=== PATIENT | male | born 1970 | race Caucasian/White ===

== ENCOUNTER → 2016-05-04 | Day surgery (SDC) | payer MEDICARE, SELFPAY ==
[~2016-05-04] MED LIST: IBUPROFEN800 MG PO; PERCOCET 7.5-31 EACH PO; VITAMIN B-121000 MC1 PO; VOLTAREN **OUT75 MG PO; XARELTO10 MG PO
[2016-05-04 11:39] LABS: HCT 42.6 % (42.0-52.0); HGB 15.1 g/dl (13.2-18.0); MCH 34.6 pg (25.0-31.0); MCHC 35.4 g/dL (32.0-36.0); MCV 97.5 fL (78.0-100.0); MPV 10.5 fL (6.0-9.5); RBC 4.37 M/uL (4.70-6.00); RDW 14.8 % (11.5-14.0); WBC 8.2 K/uL (4.0-10.5)
== END | disposition home or self-care (01) ==
LOC: FAS 10:56
PROVIDERS: Legal Medicine
DX: G56.01 Carpal tunnel syndrome, right upper limb (principal); K21.9 Gastro-esophageal reflux disease without esophagitis; M19.90 Unspecified osteoarthritis, unspecified site; F17.210 Nicotine dependence, cigarettes, uncomplicated; Z90.49 Acquired absence of other specified parts of digestive tract; Z90.89 Acquired absence of other organs; Z79.1 Long term (current) use of non-steroidal anti-inflammatories (NSAID); Z79.899 Other long term (current) drug therapy; Z98.890 Other specified postprocedural states
CPT/HCPCS: 36415; 93005; J0690; J1100; J2405; J2704; J2795; J3010

== ENCOUNTER 2016-08-14 08:00 | Inpatient (IN) | payer MEDICARE, SELFPAY ==
[~2016-08-14] VITALS: Ht 160 cm; Wt 96.0 kg
[2016-08-22 05:36] LABS: HCT 34.1 % (42.0-52.0); HGB 12.1 g/dl (13.2-18.0); MCH 34.9 pg (25.0-31.0); MCHC 35.5 g/dL (32.0-36.0); MCV 98.3 fL (78.0-100.0); MPV 10.4 fL (6.0-9.5); RBC 3.47 M/uL (4.70-6.00); RDW 14.3 % (11.5-14.0)
[2016-08-23 04:52] LABS: HGB 11.2 g/dl (13.2-18.0); MCH 34.5 pg (25.0-31.0); MCV 98.5 fL (78.0-100.0); MPV 10.6 fL (6.0-9.5); RBC 3.25 M/uL (4.70-6.00); RDW 14.3 % (11.5-14.0); WBC 9.2 K/uL (4.0-10.5)
[2016-08-23] MEDS ORDERED: IBUPROFEN800 MG PO (13:30)
[2016-08-23] MEDS ORDERED: VOLTAREN **OUT75 MG PO (13:30)
[2016-08-23] MEDS ORDERED: PERCOCET 7.5-31 EACH PO (13:30)
[2016-08-23] MEDS ORDERED: VITAMIN B-121000 MC1 PO (13:30)
[2016-08-23] MEDS ORDERED: XARELTO10 MG PO (13:31)
--- NOTE | 2016-08-23 14:00 | NUR ---
ARRIVED BACK UP TO THE FLOOR AFTER TAKING THIS PATIENT DOWN TO THE FAMILY CAR VIA W/C WITH FAMILY TO GO HOME. WENT INTO THE ROOM TO CLEAN UP AND FOUND THE DISCHARGE INSTRUCTIONS, PRESCRIPTIONS, TEACHING INFORMATION, DRESSINGS ALL LEFT IN THE CHAIR AT THE BEDSIDE. DISCHARGE INSTRUCITONS WHERE GIVEN TO THE PATIENT AND FAMILY AND WAS HANDED TO THE PATIENT AFTER SIGNING THE INSTRUCTIONS. CALL THE PHONE NUMBER THAT WAS ON THE PATIENT CHART AND LEFT A MESSAGE THAT THERE DISCHARGE INSTRUCTIONS AND PRESCRIPTIONS WHERE LEFT IN THE ROOM. HOUSE SUPERVISIOR WAS ALSO NOTIFED THAT THE DISCHARGE INSTRUCITONS AND THE SCRIPTS WHERE LEFT BEHIND.
== END 2016-08-23 13:57 | disposition home health service (06) | DRG 470 ==
LOC: FMS 08:00
PROVIDERS: ADMIT Legal Medicine
PROC: 0SRB04A Replacement of Left Hip Joint with Ceramic on Polyethylene Synthetic Substitute, Uncemented, Open Approach (ICD-10-PCS; principal; 2016-08-21 08:00)
DX: M16.12 Unilateral primary osteoarthritis, left hip (principal); F32.9 Major depressive disorder, single episode, unspecified; M91.12 Juvenile osteochondrosis of head of femur [Legg-Calve-Perthes], left leg; M21.852 Other specified acquired deformities of left thigh; F17.210 Nicotine dependence, cigarettes, uncomplicated; M54.9 Dorsalgia, unspecified; G89.29 Other chronic pain; K21.9 Gastro-esophageal reflux disease without esophagitis
CPT/HCPCS: 36415; 73501; 76000; 80048; 86850; 86900; 86901; 87640; 87641; 87900; 88304; 88311; 94667; 94668; 97110; 97116; 97162; 97166; 97530; 97530-GP; 97535; C1776; J0131; J0697; J1170; J1885; J2270; J2405; J2704; J2710; J2795; J3010; J3370

== ENCOUNTER → 2021-06-16 | Day surgery (SDC) | payer MEDICARE ==
[~2021-06-16] VITALS: Ht 160 cm; Wt 86.3 kg
[~2021-06-16] MED LIST changes: +ALLERGY RELIEF10 MG PO; +ELAVIL25 MG PO; +NEURONTIN300 MG PO; +PRAZOSIN HCL5 MG PO; +ROBAXIN750 MG PO
[2021-06-16 09:02] LABS: HCT 39.8 % (42.0-52.0); HGB 13.8 g/dl (13.2-18.0); MCH 34.5 pg (25.0-31.0); MCHC 34.7 g/dL (32.0-36.0); MCV 99.5 fL (78.0-100.0); MPV 10.6 fL (6.0-9.5); RDW 13.9 % (11.5-14.0); WBC 6.2 K/uL (4.0-10.5)
== END | disposition home or self-care (01) ==
LOC: FAS 07:39
PROVIDERS: Legal Medicine
DX: M75.102 Unspecified rotator cuff tear or rupture of left shoulder, not specified as traumatic (principal); M19.012 Primary osteoarthritis, left shoulder; G89.18 Other acute postprocedural pain; I45.19 Other right bundle-branch block; F43.10 Post-traumatic stress disorder, unspecified; G47.30 Sleep apnea, unspecified; F17.210 Nicotine dependence, cigarettes, uncomplicated; Z96.642 Presence of left artificial hip joint; W19.XXXA Unspecified fall, initial encounter
CPT/HCPCS: 36415; 93005; C1713; J0171; J0690; J1100; J2250; J2370; J2405; J2704; J2795; J3010; J7120